=== PATIENT | male | born 1990 | race Caucasian/White ===

== ENCOUNTER 2019-01-08 15:50 | Emergency (ER) | payer OTHER ==
[~2019-01-08] VITALS: Ht 188 cm; Wt 99.8 kg
[2019-01-08] MEDS ORDERED: FORFIVO XL450 MG PO (16:03)
[2019-01-08] MEDS ORDERED: BRINTELLIX5 MG PO (16:03)
[2019-01-08] MEDS ORDERED: MYDAYIS ER 50 M50 MG PO (16:04)
[2019-01-08] MEDS ORDERED: ONDANSETRON HCL4 M2 PO (16:05)
[2019-01-08] MEDS ORDERED: ADDERALL 20 MG20 M1 PO (16:05)
[2019-01-08] MEDS ORDERED: ATIVAN1 MG PO (16:07)
[2019-01-08] MEDS ORDERED: LISINOPRIL5 MG PO (16:07)
[2019-01-08] MEDS ORDERED: REFRESH PO (16:09)
[2019-01-08] MEDS ORDERED: NORCO 5-325 TA1 EAC1 PO (17:19)
[2019-01-08 17:27] VITALS: BP 106/66
== END 2019-01-08 17:27 | disposition home or self-care (01) ==
LOC: ER 15:50
DX: S62.616A Displaced fracture of proximal phalanx of right little finger, initial encounter for closed fracture (principal); S00.03XA Contusion of scalp, initial encounter; S70.01XA Contusion of right hip, initial encounter; G43.909 Migraine, unspecified, not intractable, without status migrainosus; M19.90 Unspecified osteoarthritis, unspecified site; F32.9 Major depressive disorder, single episode, unspecified; F41.9 Anxiety disorder, unspecified; Z88.8 Allergy status to other drugs, medicaments and biological substances; Z88.1 Allergy status to other antibiotic agents; W10.1XXA Fall (on)(from) sidewalk curb, initial encounter; Y93.89 Activity, other specified; Y92.89 Other specified places as the place of occurrence of the external cause; Y99.8 Other external cause status